=== PATIENT | male | born 1995 | race Caucasian/White ===

== ENCOUNTER 2018-11-12 20:30 | Emergency (ER) | payer OTHER ==
[2018-11-12 20:41] VITALS: BP 117/76
--- NOTE | 2018-11-12 21:21 | XRAY Report ---
Reason: Sports injury, pain Procedure Date: 11/12/2018 Accession Number: [id number] / [id number] Procedure: XR - Wrist 4 View RT CPT Code: FULL RESULT: EXAM: RIGHT WRIST RADIOGRAPHY EXAM DATE: 11/12/2018 08:58 PM. CLINICAL HISTORY: Sports injury, pain. COMPARISON: None. TECHNIQUE: 3 views. FINDINGS: Bones: There is a nondisplaced intra-articular fracture of the distal radius. There is a small chip fracture from the ulnar styloid. Joints: Normal. No subluxations. Soft Tissues: Minimal surrounding soft tissue swelling. IMPRESSION: Intra-articular, nondisplaced sagittal fracture line in the distal radius into the radiocarpal joint. Tiny chip fracture from the styloid. RADIA
[2018-11-12] MEDS ORDERED: IBUPROFEN 800 MG TABLET PO STA (21:49)
--- NOTE | 2018-11-12 21:51 | ED Physician Documentation ---
PD HPI UPPER EXT INJURY - Stated complaint Stated Complaint: RIGHT WRIST INJURY - Chief complaint Chief Complaint: Ext Problem - History obtained from History obtained from: Patient - History of Present Illness Location: Right, Wrist Type of injury: Fall Where injury occurred: Park Timing - duration: Hours (2) Timing - details: Abrupt onset Pain level max: 6 Pain level now: 5 Improved by: Rest Worsened by: Moving, Palpating Associated symptoms: Swelling. No: Weakness, Numbness, Tingling Contributing factors: No: Anticoagulated Recently seen: No: Not recently seen - Additonal information Additional information: Patient is left-handed. He was sliding into base with his right hand and felt a pop in his wrist. Review of Systems Constitutional: denies: Fever, Chills : denies: Dysuria Skin: denies: Rash Musculoskeletal: denies: Neck pain, Back pain Neurologic: denies: Headache PD PAST MEDICAL HISTORY - Past Medical History Past Medical History: No - Past Surgical History Past Surgical History: No - Present Medications Home Medications: Ambulatory Orders Medication Instructions Recorded Confirmed Hydrocodone/Acetaminophen 1 - 2 each PO Q6H PRN #14 tablet 11/12/18 [Hydrocodon-Acetaminophen 5-325] Ibuprofen [Motrin] 800 mg PO Q8H PRN #30 tablet 11/12/18 - Allergies Allergies/Adverse Reactions: Allergies Allergy/AdvReac Type Severity Reaction Status Date / Time No Known Drug Allergies Allergy Verified 11/12/18 20:41 - Living Situation Living Arrangement: reports: At home - Social History Does the pt have substance abuse?: No - Family History Family history: reports: Non contributory PD ED PE NORMAL - Vitals Vital signs reviewed: Yes - General General: Alert and oriented X 3, No acute distress, Well developed/nourished - HEENT HEENT: Moist mucous membranes - Neck Neck: Supple, no meningeal sign - Derm Derm: Warm and dry - Extremities Extremities: Other (Right wrist mild swelling of the dorsum of the right wrist. Tender palpation over the distal radius. Neurovascular intact.) - Neuro Neuro: Alert and oriented X 3 - Psych Psych: Normal mood, Normal affect Results - Vitals Vitals: Oxygen O2 Source Room air - Rads (name of study) Right wrist x-ray Radiology: Prelim report reviewed, EMP read contemporaneously, See rad report (Intra-articular, nondisplaced sagittal fracture line in the distal radius into the radiocarpal joint. Tiny chip fracture from the styloid. ) Procedures - Splint (location) R wrist Splint applied by: Physician, Tech Type of splint: Fiberglass, Short arm, Sugar tong Other: Patient tolerated well, No complications, Neurovascular intact, Sling provided PD MEDICAL DECISION MAKING - ED course Complexity details: reviewed results, re-evaluated patient, considered differential, d/w patient ED course: Right distal radius fracture. Placed in a volar and dorsal splint. Neurovascularly intact. We will follow-up with orthopedics. Patient counseled regarding signs and symptoms for which I believe and urgent re-evaluation would be necessary. Patient with good understanding of and agreement to plan and is comfortable going home at this time This document was made in part using voice recognition software. While efforts are made to proofread this document, sound alike and grammatical errors may occur. Departure - Departure Disposition: 01 Home, Self Care Clinical Impression: Fracture of right distal radius Qualifiers: Encounter type: initial encounter Fracture type: closed Fracture morphology: unspecified fracture morphology Qualified Code(s): S52.501A - Unspecified fracture of the lower end of right radius, initial encounter for closed fracture Condition: Good Instructions: ED Fx Upper Ext Follow-Up: JAVIER Taylor [Provider Group] - Within 1 week Prescriptions: Hydrocodone/Acetaminophen [Hydrocodon-Acetaminophen 5-325] 1 - 2 each PO Q6H PRN #14 tablet PRN Reason: pain Ibuprofen [Motrin] 800 mg PO Q8H PRN #30 tablet PRN Reason: PAIN &/OR FEVER Comments: Wear the splint until released by orthopedics. Follow-up with orthopedics within 1 week for further evaluation. Wear the sling for comfort. Do not drink alcohol or drive while on narcotic pain medicine. Note that many narcotic pain relievers also contain tylenol/acetaminophen. Please ensure that your total dose of acetaminophen from all sources does not exceed 3 grams (3000mg) per day. You may constipated on this medication, take a stool softener such as "Colace" twice a day while you are on it. Also recommend a yelf-hke-jytqghu laxative such as senna or MiraLAX any day that you do not have a bowel movement. If you received narcotic pain medication in the emergency department, do not drive or operate machinery for the next 24 hours. Discharge Date/Time: 11/12/18 22:31
== END 2018-11-12 22:31 | disposition home or self-care (01) ==
LOC: ED 20:30
DX: S52.571A Other intraarticular fracture of lower end of right radius, initial encounter for closed fracture (principal); S52.614A Nondisplaced fracture of right ulna styloid process, initial encounter for closed fracture; W22.8XXA Striking against or struck by other objects, initial encounter; Y93.64 Activity, baseball; Y92.830 Public park as the place of occurrence of the external cause
CPT/HCPCS: 29125; 73110; 99283; 99284; A9270